=== PATIENT | male | born 1965 ===

== ENCOUNTER 2022-11-10 05:15 | Day surgery (SDC) | payer OTHER ==
[~2022-11-10] VITALS: Ht 185.4 cm; Wt 113.4 kg
[~2022-11-10 05:15] MED LIST: LOSARTAN-HCTZ1 EAC1 PO
== END 2022-11-10 10:35 | disposition home or self-care (01) ==
LOC: CIR.AMB 05:15
PROVIDERS: ATTEND Surgery
DX: K80.00 Calculus of gallbladder with acute cholecystitis without obstruction (principal); Z20.822 Contact with and (suspected) exposure to COVID-19; Z88.1 Allergy status to other antibiotic agents; I10 Essential (primary) hypertension